=== PATIENT | male | born 1990 | race American Indian/Alaskan Native ===

== ENCOUNTER 2020-12-12 00:29 | Emergency (ER) | payer OTHER ==
[2020-12-12 00:41] VITALS: BP 123/74
--- NOTE | 2020-12-12 03:12 | Emergency Department Report ---
ED Eye Problem HPI - General Chief complaint: Eye Problems Stated complaint: EYE PAIN Time Seen by Provider: 12/12/20 02:48 Source: patient Mode of arrival: Ambulatory Limitations: No Limitations - History of Present Illness Initial comments: Chief complaint: Red eye, discharge HPI: This is a 30-year-old male who presents with left eye redness and discharge for 1 week. No injury. No fever. No sick contacts. MD chief complaint: eye redness, other (Discharge yellow) -: Gradual, week(s) (1 week) Onset Description: gradual Location: left eye If Injury: none Eye Symptoms: burning, redness, discharge, decreased vision Severity: mild Consistency: constant - Related Data Previous Rx's Medication Instructions Recorded Last Taken Type Polymyxin B Sulf/Trimethoprim 1 drop OP 5XD 7 Days #1 bottle 12/12/20 Unknown Rx [Polytrim Eye Drops] Allergies Allergy/AdvReac Type Severity Reaction Status Date / Time No Known Allergies Allergy Verified 07/17/15 01:00 ED Review of Systems ROS: Stated complaint: EYE PAIN Other details as noted in HPI Constitutional: denies: fever, malaise ENT: denies: congestion Respiratory: denies: cough ED Past Medical Hx - Past Medical History Previous Medical History?: No Hx Psychiatric Treatment: Yes (unknown) - Surgical History Past Surgical History?: No - Social History Smoking Status: Never Smoker Substance Use Type: None - Medications Home Medications: Home Medications Medication Instructions Recorded Confirmed Last Taken Type Polymyxin B Sulf/Trimethoprim 1 drop OP 5XD 7 Days #1 bottle 12/12/20 Unknown Rx [Polytrim Eye Drops] ED Physical Exam - General Limitations: No Limitations General appearance: alert - Head Head exam: Present: atraumatic - Eye Eye exam: Present: conjunctival injection Pupils: Present: normal accommodation - Expanded Eye Exam Expanded Eyelids: Normal Inspection: Right Pupils: Regular, Round: Right Sclera/Conjunctival: Injection: Right, Exudate: Right Anterior chamber: Normal Inspection: Right ED Course Vital Signs 12/12/20 00:35 Temperature 97.8 F Pulse Rate 67 Respiratory 18 Rate Blood Pressure 123/74 O2 Sat by Pulse 96 Oximetry ED Medical Decision Making - Medical Decision Making Acute conjunctivitis left eye, right eye normal: Patient does not wear contact lenses. Erythromycin ointment prescribed. Critical care attestation.: If time is entered above; I have spent that time in minutes in the direct care of this critically ill patient, excluding procedure time. ED Disposition Clinical Impression: Acute conjunctivitis of left eye Disposition: 01 HOME / SELF CARE / HOMELESS Is pt being admited?: No Does the pt Need Aspirin: No Condition: Stable Instructions: Bacterial Conjunctivitis, Adult, [id number] Prescriptions: Polymyxin B Sulf/Trimethoprim [Polytrim Eye Drops] 1 drop OP 5XD 7 Days #1 bottle Referrals: CRISTIAN ANGUIANO MD [Staff Physician] - 3-5 Days JONATHAN DILLON MD [Staff Physician] - 3-5 Days WENDY WATERS MD [Staff Physician] - 3-5 Days
[2020-12-12] MEDS ORDERED: ETOMIDATE 20 MG/10 ML INJ IV ONE (03:29)
[2020-12-12] MEDS ORDERED: SUCCINYLCHOLINE CHLORIDE 200 MG/10 ML INJ MDV ONE (03:29)
== END 2020-12-12 04:26 | disposition home or self-care (01) ==
LOC: ED 00:29
DX: H10.32 Unspecified acute conjunctivitis, left eye (principal)
CPT/HCPCS: 99281; J3490; J0330; J2704